=== PATIENT | male | born 1950 | race Caucasian/White ===

== ENCOUNTER 2020-05-30 15:05 | Outpatient (REF) | payer MEDICARE, MEDICAID, SELFPAY ==
[2020-05-30 15:58] LABS: MANUAL DIFF FLAG NO
[2020-05-30 16:00] LABS: Basophils Absolute Auto 0.1 X10*3/uL (0.0-0.2); Basophils Percent Auto 0.5 % (0-2); Eosinophils Absolute Auto 0.2 X10*3/uL (0.0-0.4); Eosinophils Percent Auto 1.7 % (0-4); Hematocrit 34.1 % (42-52); Hemoglobin 11.4 g/dl (14.0-18.0); Imm Gran Abs Auto 0.03 X10*3/uL (0.00-0.03); Imm Gran Pct Auto 0.3 % (0.0-0.4); Lymphocytes Absolute Auto 2.6 X10*3/uL (1.2-4.9); Lymphocytes Percent Auto 25.8 % (20-40); Mean Corpuscular HGB Conc 33.4 g/dl (31.0-36.0); Mean Corpuscular Hemoglobin 30.5 pg (27.0-33.0); Mean Corpuscular Volume 91.2 fL (80-98); Mean Platelet Volume 9.4 fL (9.4-12.4); Monocytes Absolute Auto 0.6 X10*3/uL (0.1-1.2); Monocytes Percent Auto 5.6 % (2-11); Neutrophils Absolute Auto 6.5 X10*3/uL (2.0-8.3); Neutrophils Percent Auto 66.1 % (45-73); Platelet Count 251 X10*3/uL (160-400); Red Blood Count 3.74 X10*6/uL (4.60-5.80); Red Cell Distribution Width 13.2 % (11.0-16.0); White Blood Count 9.9 X10*3/uL (4.8-10.8)
[2020-05-30 16:15] LABS: Glucose Urine UA NEG (NEG); Leukocyte Esterase Urine NEG (NEG); Nitrite Urine NEG (NEG); Specific Gravity - Urine 1.025 (1.005-1.025); Urine Blood NEG (NEG); Urine Ketones 5 MG/DL (NEG); Urine Protein NEG (NEG-TRACE)
[2020-05-30 16:16] LABS: Appearance Urine CLEAR; Color Urine YELLOW
[2020-05-30 16:29] LABS: Albumin Level 4.4 g/dL (3.5-5.0); Calcium 9.6 mg/dL (8.4-10.2); Magnesium 1.7 mg/dL (1.6-2.6); Phosphorus 2.5 mg/dL (2.7-4.5)
[2020-05-30 16:33] LABS: Creatinine Urine 174.82 mg/dL; Creatinine Urine 176.19 mg/dL; Microalbum/Creatinine Ratio Ur 7.3 ug/mg cr; Protein/Creatinine Ratio, Ur 0.07 (<0.2); Total Protein Urine Random 12 mg/dL (<12)
[2020-05-30 16:54] LABS: Vitamin D 25-OH Total 24.6 ng/mL (>30)
[2020-05-30 18:27] LABS: Anion Gap 14 (12-20); Carbon Dioxide 22 mmol/L (22-29); Chloride 108 mmol/L (96-108); Potassium 4.3 mmol/l (3.3-5.1); Sodium 140 mmol/L (135-145)
[2020-05-30 18:29] LABS: Renal w Reflex Lab Use Only Order verified
[2020-05-31 22:13] LABS: Calcium (PTHI) 9.7 mg/dL (8.6-10.3); PTHI 53 pg/mL (14-64)
== END 2020-05-30 15:06 | disposition home or self-care (01) ==
LOC: HO.LAB 15:05
PROVIDERS: Visit Provider Internal Medicine Nephrology
DX: E11.22 Type 2 diabetes mellitus with diabetic chronic kidney disease (principal); E11.29 Type 2 diabetes mellitus with other diabetic kidney complication; E11.21 Type 2 diabetes mellitus with diabetic nephropathy; N18.30 Chronic kidney disease, stage 3 unspecified
CPT/HCPCS: 36415; 80051; 81003; 82040; 82043; 82306; 82310; 83735; 83970; 84100; 84156; 85025; 87086

== ENCOUNTER 2020-06-29 10:18 | Outpatient (REF) | payer MEDICARE, MEDICAID, SELFPAY ==
--- NOTE | 2020-06-29 | US_ITS ---
EXAMINATION: US LOWER EXTREMITY DUPLEX DOPPLER ARTERIAL, RIGHT CLINICAL INFORMATION: Claudication and pain right leg. COMPARISON: None TECHNIQUE: Real-time ultrasound and Doppler techniques (integrating B-mode 2D vascular images, Doppler spectral analysis and color flow Doppler imaging) were utilized to interrogate the right lower extremity. FINDINGS: Right common femoral artery has a triphasic waveform with peak systolic velocity of 129 cm/s. The profunda femoral artery has a triphasic waveform with peak systolic velocity of 185 cm/s. The proximal superficial femoral artery has a biphasic waveform with peak systolic velocity of 155 cm/s. The mid superficial femoral artery has a triphasic waveform with peak systolic velocity of 107 cm/s. The distal superficial femoral artery has a biphasic waveform with peak systolic velocity of 84 cm/s. The popliteal artery has a biphasic waveform with peak systolic velocity of 88 cm/s. The peroneal artery has a biphasic waveform with peak systolic velocity of 82 cm/s. The posterior tibial artery has a biphasic waveform with peak systolic velocity 59 cm/s. There are some scattered regions of calcified and noncalcified plaque. US/US arterial duplex LE RT IMPRESSION: Mild changes of peripheral arterial disease within the right lower extremity.
== END 2020-06-29 10:19 | disposition home or self-care (01) ==
LOC: HO.US 10:18
PROVIDERS: PCP Internal Medicine Nephrology; Visit Provider Internal Medicine Nephrology
DX: N18.30 Chronic kidney disease, stage 3 unspecified (principal); E11.29 Type 2 diabetes mellitus with other diabetic kidney complication; E11.21 Type 2 diabetes mellitus with diabetic nephropathy; M79.604 Pain in right leg; I73.9 Peripheral vascular disease, unspecified
CPT/HCPCS: 93926